=== PATIENT | female | born 1960 | race American Indian/Alaskan Native ===

== ENCOUNTER 2017-07-17 15:30 | Emergency (ER) | payer BC ==
[2017-07-17 15:33] VITALS: BMI 32.4
--- NOTE | 2017-07-17 15:38 | ED PDOC ---
Arrival/HPI - General Time Seen by Provider: 07/17/17 15:37 Historian: Patient - History of Present Illness Narrative History of Present Illness (Text): 07/17/17 15:38 57 y/o female, pmh including htn/hyperlipidemia/dm/cva, nkda, c/o urinary frequency x 2 weeks. Pt. stated that she has not been compliance with her metformin, suddenly stop it about 3 days ago and been eating a lot of sweet things. Pt. went to see the pmd Dr. Lancaster today, FS was over 400s and refer the patient to the ER. Pt. has no nausea or vomiting, no fever or chills, no headache or night sweat, no vaginal bleeding or pain, no pelvic cramp, no burning sensation, no dizziness, no numbness or tingling, no other medical or psychological complaints. Past Medical History - Provider Review Nursing Documentation Reviewed: Yes - Infectious Disease Hx of Infectious Diseases: None - Tetanus Immunization Tetanus Immunization: Unknown - Cardiac Hx Cardiac Disorders: Yes Hx Hypertension: Yes - Pulmonary Hx Respiratory Disorders: No - Neurological Hx Neurological Disorder: Yes (CT SCAN SHOWED 9-4-16 ENCEPHALOMALACIA-L PARIETAL OCCIPITAL LOBE.) HX Cerebrovascular Accident: Yes Hx Dizziness: Yes - HEENT Hx HEENT Disorder: No (WEARS RX GLASSES) - Endocrine/Metabolic Hx Endocrine Disorders: Yes Hx Diabetes Mellitus Type 2: Yes - Hematological/Oncological Hx Blood Disorders: No - Integumentary Hx Dermatological Disorder: No - Musculoskeletal/Rheumatological Hx Musculoskeletal Disorders: Yes Hx Falls: Yes - Gastrointestinal Hx Gastrointestinal Disorders: Yes (GASTROENTERITIS) - Genitourinary/Gynecological Hx Genitourinary Disorders: Yes (TUBAL LIGATION,MISCARRIAGE X 1) - Psychiatric Hx Depression: No Hx Emotional Abuse: No Hx Physical Abuse: No Hx Substance Use: No - Past Surgical History Past Surgical History: No Previous - Surgical History Hx Tubal Ligation: Yes - Anesthesia Hx Anesthesia: Yes Hx Anesthesia Reactions: No Hx Malignant Hyperthermia: No - Suicidal Assessment Feels Threatened In Home Enviroment: No Family/Social History - Physician Review Nursing Documentation Reviewed: Yes Family/Social History: Unknown Family HX Smoking Status: Never Smoked Hx Alcohol Use: No Hx Substance Use: No Hx Substance Use Treatment: No Allergies/Home Meds Allergies/Adverse Reactions: Allergies No Known Allergies Allergy (Verified 07/17/17 15:33) Home Medications: Home Meds Medication Instructions Recorded Confirmed Carvedilol [Coreg] 25 mg PO BID 06/12/16 07/17/17 Aspirin [Ecotrin] 325 mg PO DAILY 07/17/17 07/17/17 Memantine [Namenda] 10 mg PO DAILY 07/17/17 07/17/17 Rosuvastatin Calcium [Crestor] 10 mg PO DAILY 07/17/17 07/17/17 Review of Systems - Review of Systems Constitutional: absent: Fatigue, Fevers Eyes: absent: Vision Changes ENT: absent: Hearing Changes Respiratory: absent: SOB, Cough Cardiovascular: absent: Chest Pain Gastrointestinal: absent: Abdominal Pain, Diarrhea, Nausea, Vomiting Genitourinary Female: Frequency. absent: Dysuria, Hematuria, Urine Output Changes, Vaginal Bleeding, Vaginal Discharge Musculoskeletal: absent: Arthralgias, Myalgias Skin: absent: Rash, Pruritis Neurological: absent: Headache, Dizziness Physical Exam Vital Signs Reviewed: Yes Vital Signs Temp Pulse Resp BP Pulse Ox 07/17/17 17:50 98.3 F 61 17 160/84 H 96 07/17/17 16:37 98.2 F 56 L 17 149/86 98 07/17/17 15:38 98.1 F 63 17 170/100 H 97 Temperature: Afebrile Blood Pressure: Hypertensive Pulse: Regular Respiratory Rate: Normal Appearance: Positive for: Well-Appearing, Non-Toxic, Comfortable Pain Distress: None Mental Status: Positive for: Alert and Oriented X 3 - Systems Exam Head: Present: Atraumatic, Normocephalic Pupils: Present: PERRL Extroacular Muscles: Present: EOMI Conjunctiva: Present: Normal Mouth: Present: Moist Mucous Membranes Neck: Present: Normal Range of Motion Respiratory/Chest: Present: Clear to Auscultation, Good Air Exchange. No: Respiratory Distress, Accessory Muscle Use Cardiovascular: Present: Regular Rate and Rhythm, Normal S1, S2. No: Murmurs Abdomen: Present: Normal Bowel Sounds. No: Tenderness, Distention, Peritoneal Signs Back: Present: Normal Inspection. No: CVA Tenderness Upper Extremity: Present: Normal Inspection. No: Cyanosis, Edema Lower Extremity: Present: Normal Inspection. No: Edema Neurological: Present: GCS=15, Speech Normal, Motor Func Grossly Intact, Gait Normal, Memory Normal Skin: Present: Warm, Dry, Normal Color. No: Rashes Psychiatric: Present: Alert, Oriented x 3, Normal Insight, Normal Concentration Medical Decision Making ED Course and Treatment: 07/17/17 16:17 -labs/vbg -IVF -Observe and reassess 07/17/17 17:56 -PH: 7.38, Co2: 50, HCO3: 29.6 -Labs are non-significant except Glucose 379, no anion gap, potassium within normal limit -There is no clear evidence of DKA. -UA show no UTI but there is urine gluocose over 1000 -I offered STD testings and prophyatic treatment for gonorrhea and chlamydia, pt. stated that she doesn't want it and only have sex with the plus she is not sexually active for the past few months. -FS 379 decreased down to 194. I spent well over 10-15 minutes talking to the patient and the about the importance of the glucose control as she already have significant past medical histories. -Case discussed with Dr. Smith, he agreed on the diagnosis/treatment discharge plan with no admission emergently indicated. -Discharge home with education on cut down on the sweet diets, continue your metformin at home and follow up with your own pmd tomorrow for medication adjustment and HGB a1c testing, follow up with a circulation crew leader/nascar driver if the diabete is difficulty to be controlled, return to the ER for any new or worsening signs or symptoms. - Lab Interpretations Lab Results: 07/17/17 16:22 07/17/17 16:22 Lab Results 07/17/17 16:30: Urine Color Light yellow, Urine Appearance Clear, Urine pH 6.5, Ur Specific [place] 1.015, Urine Protein Trace H, Urine Glucose (UA) >=1000, Urine Ketones Negative, Urine Blood Negative, Urine Nitrate Negative, Urine Bilirubin Negative, Urine Urobilinogen 0.2, Ur Leukocyte Esterase Negative, Urine RBC 0 - 2, Urine WBC 0 - 2, Ur Epithelial Cells 0 - 2 07/17/17 16:22: pO2 101 H, VBG pH 7.38, VBG pCO2 50.0, VBG HCO3 29.6 H, VBG Total CO2 31.1 H, VBG O2 Sat (Calc) 99.4 H, VBG Base Excess 3.4 H, VBG Potassium 4.2, Sodium 135.0, Chloride 100.0, Glucose 399 H, Lactate 1.2, FiO2 21.0, Venous Blood Potassium 4.2 07/17/17 16:22: Sodium 135, Chloride 99, Potassium 4.4, Carbon Dioxide 29, Anion Gap 11, BUN 8, Creatinine 0.6 L, Est GFR ( Amer) > 60, Est GFR (Non -Af Amer) > 60, Random Glucose 379 H* D, Calcium 9.5, Total Bilirubin 0.5, AST 38 H, ALT 44, Alkaline Phosphatase 81, Total Protein 6.8, Albumin 4.0, Globulin 2.8, Albumin/Globulin Ratio 1.4 07/17/17 16:22: WBC 5.2 D, RBC 4.41, Hgb 12.5, Hct 37.0, MCV 83.9, MCH 28.3, MCHC 33.8, RDW 11.9, Plt Count 180, MPV 10.9, Gran % 65.2, Lymph % (Auto) 25.9, [place] % (Auto) 7.5 H, Eos % (Auto) 1.2 L, Baso % (Auto) 0.2, Gran # 3.40, Lymph # 1.4, [place] # 0.4, Eos # 0.1, Baso # 0.01 Interpretation: Abnormal lab values (Glucose 379, urine gluocose over 1000) - Medication Orders Current Medication Orders: Sodium Chloride (Sodium Chloride 0.9%) 1,000 mls @ 200 mls/hr IV .Q5H ANDREA Discontinued Medications Sodium Chloride (Sodium Chloride 0.9%) 1,000 mls @ 999 mls/hr IV .Q1H1M STA Stop: 07/17/17 17:10 Last Admin: 07/17/17 16:30 Dose: 999 mls/hr eMAR Start Stop Document 07/17/17 16:30 IT (Rec: 07/17/17 16:30 [place] [facility] [id number] Intravenous Solution Start Date 07/17/17 Start Time 16:30 End Date 07/17/17 End time 17:30 Total Infusion Time 60 Insulin Human Regular (Humulin R) 6 units IV STAT STA Stop: 07/17/17 16:47 Last Admin: 07/17/17 17:14 Dose: 6 units eMAR Start Stop Document 07/17/17 17:14 IT (Rec: 07/17/17 17:14 IT [facility] [place] [id number] Intravenous Solution Start Date 07/17/17 Start Time 17:14 [facility] Blood Glucose Document 07/17/17 17:14 IT (Rec: 07/17/17 17:14 IT [facility] [id number] Blood Glucose Finger Stick Blood Glucose (70-120) 349 - PA / MICROMATIC HONE OPERATOR / Resident Statement MD/DO has reviewed & agrees with the documentation as recorded. Disposition/Present on Arrival - Present on Arrival Any Indicators Present on Arrival: No History of DVT/PE: No History of Uncontrolled Diabetes: No Urinary Catheter: No History of Decub. Ulcer: No History Surgical Site Infection Following: None - Disposition Have Diagnosis and Disposition been Completed?: Yes Diagnosis: Diabetes mellitus, Hyperglycemia Disposition: HOME/ ROUTINE Disposition Time: 17:41 Patient Plan: Discharge Patient Problems: Current Active Problems Problem Status Onset Diabetes mellitus Acute Hyperglycemia Acute Condition: GOOD Additional Instructions: -Discharge home with education on cut down on the sweet diets, continue your metformin at home and follow up with your own pmd tomorrow for medication adjustment and HGB a1c testing, follow up with a circulation crew leader/nascar driver if the diabete is difficulty to be controlled, return to the ER for any new or worsening signs or symptoms. Referrals: Brennen Lancaster MD [Primary Care Provider] - Follow up with primary Forms: WORK NOTE
[2017-07-17 15:39] VITALS: RESP 17
[2017-07-17] MEDS ORDERED: Sodium Chloride 0.9% 1,000 ML IV STA (16:10)
[2017-07-17 16:33] LABS: BASO # 0.01 K/mm3 (0.0-2.0); BASO % 0.2 % (0.0-3.0); EOS # 0.1 (0.0-0.7); EOS % 1.2 % (1.5-5.0); GRAN # 3.4 (1.4-6.5); GRAN % 65.2 % (50.0-68.0); LYMPH # 1.4 (1.2-3.4); LYMPH % 25.9 % (22.0-35.0); MEAN CELL VOLUME 83.9 fl (80.0-105.0); MEAN CORPUSCULAR HEMOGLOBIN 28.3 pg (25.0-35.0); MEAN CORPUSCULAR HGB CONC 33.8 g/dl (31.0-37.0); MEAN PLATELET VOLUME 10.9 fl (7.0-11.0); MONO # 0.4 (0.1-0.6); MONO % 7.5 % (1.0-6.0); RED CELL DISTRIBUTION WIDTH 11.9 % (11.5-14.5); VENOUS BLOOD GAS BASE EXCESS 3.4 mmol/L (0.0-2.0); VENOUS BLOOD PH 7.38 (7.32-7.43); WHITE BLOOD COUNT 5.2 10^3/ul (4.5-11.0)
[2017-07-17 16:42] LABS: ALB/GLOB RATIO 1.4 (1.1-1.8); ALKALINE PHOSPHATASE 81 U/L (38-126); ALT/SGPT 44 U/L (7-56); AST/SGOT 38 U/L (14-36); BILIRUBIN,TOTAL 0.5 mg/dL (0.2-1.3); BLOOD UREA NITROGEN 8 mg/dL (7-21); CALCIUM 9.5 mg/dL (8.4-10.5); CARBON DIOXIDE 29 mmol/L (21-33); CHLORIDE 99 mmol/L (98-107); GFR AFRICAN-AMERICAN > 60; POTASSIUM 4.4 mmol/L (3.6-5.0); SODIUM 135 mmol/L (132-148); TOTAL PROTEIN 6.8 g/dL (5.8-8.3)
[2017-07-17 16:44] LABS: GLUCOSE,RANDOM 379 mg/dL (70-110)
[2017-07-17] MEDS ORDERED: Insulin Regular 1 UNITS/0.01 ML ML IV STA (16:46)
[2017-07-17 16:54] LABS: PH,URINE 6.5 (4.7-8.0); URINE BILIRUBIN NEGATIVE (NEGATIVE); URINE BLOOD NEGATIVE (NEGATIVE); URINE GLUCOSE (UA) >=1000 mg/dL (NEGATIVE); URINE KETONE NEGATIVE (NEGATIVE); URINE LEUKOCYTE ESTERASE NEGATIVE Leu/uL (NEGATIVE); URINE PROTEIN TRACE mg/dL (<30 mg/dL); URINE UROBILINOGEN 0.2 E.U./dL (<1 E.U./dL)
[2017-07-17 16:57] LABS: URINE APPEARANCE CLEAR (CLEAR); URINE COLOR LIGHT YELLOW (YELLOW)
[2017-07-17] MEDS ORDERED: Sodium Chloride 0.9% 1,000 ML IV SCH (17:00)
[2017-07-17 17:13] LABS: URINE EPITHELIAL CELLS 0 - 2 /hpf (0-5); URINE RBC 0 - 2 /hpf (0-2); URINE WBC 0 - 2 /hpf (0-6)
[2017-07-17 17:51] VITALS: BP 160/84; PULSE 61
[2017-07-17 18:04] VITALS: TEMP 98.5; O2SAT 98
== END 2017-07-17 18:08 | disposition home or self-care (01) ==
LOC: ED 15:30
DX: E11.65 Type 2 diabetes mellitus with hyperglycemia (principal); I10 Essential (primary) hypertension
CPT/HCPCS: 80053; 81001; 82803; 82948; 83930; 85025; 96360; 99284; J7040

== ENCOUNTER 2018-06-10 11:19 | Emergency (ER) | payer BC ==
[2018-06-10 11:19] VITALS: BMI 32.4
[2018-06-10] MEDS ORDERED: Oxycodone/Acetaminophen 5/325 mg Tab PO STA (11:50)
[2018-06-10 11:52] VITALS: RESP 18; O2SAT 97
--- NOTE | 2018-06-10 11:54 | ED PDOC ---
Arrival/HPI - General Chief Complaint: Dental Pain Time Seen by Provider: 06/10/18 11:39 Historian: Patient - History of Present Illness Narrative History of Present Illness (Text): 06/10/18 11:51 58yo female with pmhx of hypertension who present with 3days history of right sided upper toothache. Patient states she was taking OTC analgesia without relieve. She denies fever, chills, trauma, any other complaint. Past Medical History - Provider Review Nursing Documentation Reviewed: Yes - Infectious Disease Hx of Infectious Diseases: None - Tetanus Immunization Tetanus Immunization: Unknown - Reproductive Menopause: Yes - Cardiac Hx Cardiac Disorders: Yes Hx Hypertension: Yes - Pulmonary Hx Respiratory Disorders: No - Neurological Hx Neurological Disorder: Yes (CT SCAN SHOWED 06-12-16 ENCEPHALOMALACIA-L PARIETAL OCCIPITAL LOBE.) HX Cerebrovascular Accident: Yes Hx Dizziness: Yes - HEENT Hx HEENT Disorder: No (WEARS RX GLASSES) - Renal Hx Renal Disorder: No - Endocrine/Metabolic Hx Endocrine Disorders: Yes Hx Diabetes Mellitus Type 2: Yes - Hematological/Oncological Hx Blood Disorders: No - Integumentary Hx Dermatological Disorder: No - Musculoskeletal/Rheumatological Hx Musculoskeletal Disorders: Yes Hx Falls: Yes - Gastrointestinal Hx Gastrointestinal Disorders: Yes (GASTROENTERITIS) - Genitourinary/Gynecological Hx Genitourinary Disorders: Yes (TUBAL LIGATION,MISCARRIAGE X 1) - Psychiatric Hx Depression: No Hx Emotional Abuse: No Hx Physical Abuse: No Hx Substance Use: No - Past Surgical History Past Surgical History: No Previous - Surgical History Hx Tubal Ligation: Yes - Anesthesia Hx Anesthesia: Yes Hx Anesthesia Reactions: No Hx Malignant Hyperthermia: No - Suicidal Assessment Feels Threatened In Home Enviroment: No Family/Social History - Physician Review Nursing Documentation Reviewed: Yes Family/Social History: Unknown Family HX Smoking Status: Never Smoked Hx Alcohol Use: No Hx Substance Use: No Hx Substance Use Treatment: No Allergies/Home Meds Allergies/Adverse Reactions: Allergies No Known Allergies Allergy (Verified 06/10/18 11:30) Home Medications: Home Meds Medication Instructions Recorded Confirmed Carvedilol [Coreg] 25 mg PO BID 06/12/16 06/10/18 Aspirin [Ecotrin] 325 mg PO DAILY 07/17/17 06/10/18 Memantine [Namenda] 10 mg PO DAILY 07/17/17 06/10/18 Rosuvastatin Calcium [Crestor] 10 mg PO DAILY 07/17/17 06/10/18 Glimepiride [Amaryl] 4 mg PO BID 06/10/18 06/10/18 Review of Systems - Physician Review All systems were reviewed & negative as marked: Yes - Review of Systems Constitutional: Normal Eyes: Normal ENT: Other (Toothache) Respiratory: Normal Cardiovascular: Normal Gastrointestinal: Normal Genitourinary Female: Normal Musculoskeletal: Normal Skin: Normal Neurological: Normal Endocrine: Normal Hemo/Lymphatic: Normal Psychiatric: Normal Physical Exam Vital Signs Reviewed: Yes Vital Signs Temp Pulse Resp BP Pulse Ox 06/10/18 11:27 98.4 F 69 18 162/99 H 97 Temperature: Afebrile Blood Pressure: Normal Pulse: Regular Respiratory Rate: Normal Appearance: Positive for: Well-Appearing, Non-Toxic, Comfortable Pain Distress: None Mental Status: Positive for: Alert and Oriented X 3 - Systems Exam Head: Present: Atraumatic, Normocephalic Pupils: Present: PERRL Extroacular Muscles: Present: EOMI Conjunctiva: Present: Normal Mouth: Present: Moist Mucous Membranes. No: Normal Teeth (Poor dentition in general. Mutliple missing tooth. Multiple right upper tooth noted with gingivitis. Mild overlaying cheek swelling noted) Neck: Present: Normal Range of Motion Respiratory/Chest: Present: Clear to Auscultation, Good Air Exchange. No: Respiratory Distress, Accessory Muscle Use Cardiovascular: Present: Regular Rate and Rhythm, Normal S1, S2. No: Murmurs Abdomen: No: Tenderness, Distention, Peritoneal Signs Back: Present: Normal Inspection Upper Extremity: Present: Normal Inspection. No: Cyanosis, Edema Lower Extremity: Present: Normal Inspection. No: Edema Neurological: Present: GCS=15, CN II-XII Intact, Speech Normal Skin: Present: Warm, Dry, Normal Color. No: Rashes Psychiatric: Present: Alert, Oriented x 3, Normal Insight, Normal Concentration Disposition/Present on Arrival - Present on Arrival Any Indicators Present on Arrival: No History of DVT/PE: No History of Uncontrolled Diabetes: No Urinary Catheter: No History of Decub. Ulcer: No History Surgical Site Infection Following: None - Disposition Have Diagnosis and Disposition been Completed?: Yes Diagnosis: Dental abscess Disposition: HOME/ ROUTINE Disposition Time: 12:00 Patient Plan: Discharge Condition: STABLE Discharge Instructions (ExitCare): Tooth Abscess (DC) Additional Instructions: Follow up with your Dentist Return to ED for any new symptoms Prescriptions: Amoxicillin 500 mg PO TID #21 tablet traMADol [Ultram] 50 mg PO TID #12 tab Referrals: Priyanka Rojas MD [Medical Doctor] - Follow up with primary
[2018-06-10 12:30] VITALS: BP 133/94; PULSE 71; TEMP 98
== END 2018-06-10 12:27 | disposition home or self-care (01) ==
LOC: ED 11:19
DX: K04.7 Periapical abscess without sinus (principal); I10 Essential (primary) hypertension; E11.9 Type 2 diabetes mellitus without complications

== ENCOUNTER 2018-10-26 08:57 | Outpatient (CLI) | payer BC | END 2018-10-26 08:58 | disposition home or self-care (01) | LOC: RAD 08:57 ==